=== PATIENT | female | born 1955 | race Caucasian/White ===

== ENCOUNTER → 2016-11-11 | Outpatient (CLI) | payer OTHER ==
[2016-11-11 12:33] LABS: Anion Gap 11 mmol/L; Blood Urea Nitrogen 15 mg/dL (7-17); Calcium 9.4 mg/dL (8.4-10.2); Carbon Dioxide 27 mmol/L (22-30); Chloride 103 mmol/L (98-107); Glucose 112 mg/dL (74-99); Non-African American GFR(MDRD) >60 (>60 ml/min/1.73 sqM); Potassium 4.1 mmol/L (3.5-5.1); Sodium 141 mmol/L (137-145)
[2016-11-11 12:35] LABS: Hemoglobin A1C 6.5 % (4.2-6.1)
== END | disposition home or self-care (01) ==
LOC: LABWHC1 11:49
PROVIDERS: ATTEND Internal Medicine
DX: E11.65 Type 2 diabetes mellitus with hyperglycemia (principal)
CPT/HCPCS: 36415; 80048; 83036

== ENCOUNTER → 2017-03-09 | Outpatient (CLI) | payer OTHER ==
[2017-03-09 12:09] LABS: Anion Gap 11 mmol/L; Blood Urea Nitrogen 10 mg/dL (7-17); Calcium 9.4 mg/dL (8.4-10.2); Carbon Dioxide 27 mmol/L (22-30); Chloride 102 mmol/L (98-107); Glucose 136 mg/dL (74-99); Non-African American GFR(MDRD) >60 (>60 ml/min/1.73 sqM); Potassium 4.4 mmol/L (3.5-5.1); Sodium 140 mmol/L (137-145)
[2017-03-09 16:27] LABS: Urine Creatinine 133.4 mg/dL
== END | disposition home or self-care (01) ==
LOC: LABWHC1 11:41
PROVIDERS: ATTEND Internal Medicine
DX: E11.65 Type 2 diabetes mellitus with hyperglycemia (principal)
CPT/HCPCS: 36415; 80048; 82043; 82570; 83036

== ENCOUNTER → 2017-04-22 | Outpatient (CLI) | payer OTHER ==
[2017-04-22 12:30] LABS: ALT 32 U/L (9-52); AST 16 U/L (14-36); Alkaline Phosphatase 68 U/L (38-126); Anion Gap 10 mmol/L; Blood Urea Nitrogen 12 mg/dL (7-17); Calcium 9.1 mg/dL (8.4-10.2); Carbon Dioxide 27 mmol/L (22-30); Chloride 104 mmol/L (98-107); Cholesterol 115 mg/dL (<200); Glucose 126 mg/dL (74-99); HDL Cholesterol 43 mg/dL (40-60); Non-African American GFR(MDRD) >60 (>60 ml/min/1.73 sqM); Potassium 4.3 mmol/L (3.5-5.1); Sodium 141 mmol/L (137-145); Total Bilirubin 0.5 mg/dL (0.2-1.3); Total Protein 6.6 g/dL (6.3-8.2)
[2017-04-22 13:21] LABS: Basophils % (A) 0 %; CHCM 34.3; Eosinophils # (A) 0.3 k/uL (0-0.7); Eosinophils % (A) 3 %; HCT 36.7 % (34.0-46.0); HDW 3.06; HGB 12.8 gm/dL (11.4-16.0); Luc # (Auto) 0.18; Luc % (Auto) 2; Lymphocytes # (A) 2.7 k/uL (1.0-4.8); Lymphocytes % (A) 30 %; MCH 28.5 pg (25.0-35.0); MCHC 34.8 g/dL (31.0-37.0); MCV 81.9 fL (80.0-100.0); Mean Platelet Volume 7.4; Monocytes # (A) 0.4 k/uL (0-1.0); Monocytes % (A) 4 %; Neutrophils # (A) 5.5 k/uL (1.3-7.7); Neutrophils % (A) 61 %; RBC 4.48 m/uL (3.80-5.40); RDW 13.5 % (11.5-15.5); WBC (Perox) 9.25
== END | disposition home or self-care (01) ==
LOC: LABWHC1 11:11
PROVIDERS: ATTEND Internal Medicine
DX: Z00.00 Encounter for general adult medical examination without abnormal findings (principal); E78.2 Mixed hyperlipidemia; I10 Essential (primary) hypertension; E11.21 Type 2 diabetes mellitus with diabetic nephropathy
CPT/HCPCS: 36415; 80053; 80061; 83036; 85025

== ENCOUNTER → 2017-08-19 | Outpatient (CLI) | payer OTHER ==
[2017-08-19 14:36] LABS: Anion Gap 12 mmol/L; Blood Urea Nitrogen 15 mg/dL (7-17); Calcium 9.8 mg/dL (8.4-10.2); Carbon Dioxide 28 mmol/L (22-30); Chloride 99 mmol/L (98-107); Glucose 162 mg/dL (74-99); Potassium 4.3 mmol/L (3.5-5.1); Sodium 139 mmol/L (137-145)
[2017-08-20 01:47] LABS: Hemoglobin A1C 7.6 % (4.0-6.0)
== END | disposition home or self-care (01) ==
LOC: LABWHC1 12:27
PROVIDERS: ATTEND Internal Medicine
DX: E11.65 Type 2 diabetes mellitus with hyperglycemia (principal)
CPT/HCPCS: 36415; 80048; 82043; 82570; 83036

== ENCOUNTER → 2018-04-21 | Outpatient (CLI) | payer OTHER ==
--- NOTE | 2018-04-23 13:01 | MM ---
Reason for exam: screening (asymptomatic). Last mammogram was performed 1 year and 5 months ago. History: Patient is postmenopausal. Benign MG stereo VAD BX LT of the left breast, September 24, 2015. Took estrogen for 6 years 7 months beginning at age 39. Physical Findings: A clinical breast exam by your physician is recommended on an annual basis and results should be correlated with mammographic findings. MG 3D Screening Mammo W/Cad Bilateral CC and MLO view(s) were taken. Prior study comparison: November 20, 2016, bilateral MG 3d diag mammo w/cad BK. April 04, 2016, left breast MG 3d diag mammo w/cad LT. There are scattered fibroglandular densities. Previous mammotome biopsy in the left breast. No significant changes when compared with prior studies. ASSESSMENT: Benign, BI-RAD 2 RECOMMENDATION: Routine screening mammogram of both breasts in 1 year.
== END | disposition home or self-care (01) ==
LOC: RADMAMWWP 13:53
PROVIDERS: ATTEND Internal Medicine
DX: Z12.31 Encounter for screening mammogram for malignant neoplasm of breast (principal)
CPT/HCPCS: 77063; 77067

== ENCOUNTER 2018-09-23 11:35 | Day surgery (SDC) | payer OTHER ==
[2018-09-14 12:54] VITALS: BMI 34.9
[2018-09-23 12:07] VITALS: RESP 16; TEMP 98.9
[2018-09-23] MEDS ORDERED: LACTATED RINGERS 1,000 ML IV ONE (12:18)
[2018-09-23] MEDS ORDERED: LIDOCAINE 1% 20 ML VIAL (10MG/ML) FOR IV START INTRADERMA ONE (12:18)
[2018-09-23 12:24] LABS: Glucose,Whole Blood 199 mg/dL (75-99)
[2018-09-23] MEDS ORDERED: PROPOFOL 10 MG/ML 20 ML VIAL IV ONE (14:26)
[2018-09-23] MEDS ORDERED: LIDOCAINE 1% INJ 10MG/ML (20 ML MDV) ONE (14:26)
--- NOTE | 2018-09-23 14:42 | P.OP ---
Date of Procedure: 09/23/18 Preoperative Diagnosis: Dysphagia and GERD Postoperative Diagnosis: Gastritis, esophagitis, small hiatal hernia Procedure(s) Performed: EGD with biopsy Anesthesia: MAC Surgeon: Khai Robbins Condition: stable Disposition: same day Description of Procedure: Patient is brought to the Endo suite was a left lateral decubitus position underwent sedation per department of anesthesia timeout performed correct patient correct procedure correct site was verified and the scope was passed first on the esophagus with ease through the stomach and the first and second portion of the duodenum biopsy was taken to rule out duodenitis scope was withdrawn to the stomach where mild gastritis is noted and antral biopsy was taken to rule out H. pylori. The scope was retroflexed all perez and body of stomach were visualized no other abnormalities were noted there was a very small hiatal hernia noted. The scope was then withdrawn to the GE junction where there was mild inflammation noted at the GE junction biopsy was taken and the scope was withdrawn through the esophagus and no other abnormalities were noted patient artery procedure well no apparent complications
[2018-09-23 15:12] VITALS: BP 136/84; PULSE 81
== END 2018-09-23 15:20 | disposition home or self-care (01) ==
LOC: ORWHC2ENDO 11:35
PROVIDERS: ATTEND Student in an Organized Health Care Education/Training Program
DX: K29.50 Unspecified chronic gastritis without bleeding (principal); K44.9 Diaphragmatic hernia without obstruction or gangrene; K21.0 Gastro-esophageal reflux disease with esophagitis; G89.29 Other chronic pain; E11.65 Type 2 diabetes mellitus with hyperglycemia; I10 Essential (primary) hypertension; E78.5 Hyperlipidemia, unspecified; M10.9 Gout, unspecified; M19.90 Unspecified osteoarthritis, unspecified site; G43.909 Migraine, unspecified, not intractable, without status migrainosus; Z79.84 Long term (current) use of oral hypoglycemic drugs; Z79.82 Long term (current) use of aspirin; Z79.899 Other long term (current) drug therapy; Z88.1 Allergy status to other antibiotic agents; Z88.2 Allergy status to sulfonamides; Z91.048 Other nonmedicinal substance allergy status; Z90.710 Acquired absence of both cervix and uterus
CPT/HCPCS: 88305; 43239; J2001; J2704

== ENCOUNTER → 2019-05-03 | Outpatient (CLI) | payer OTHER ==
--- NOTE | 2019-05-04 14:35 | MM ---
Reason for exam: screening (asymptomatic). Last mammogram was performed 1 year ago. History: Patient is postmenopausal. Benign MG stereo VAD BX LT of the left breast, September 24, 2015. Took estrogen for 6 years 7 months beginning at age 39. Physical Findings: A clinical breast exam by your physician is recommended on an annual basis and results should be correlated with mammographic findings. MG 3D Screening Mammo W/Cad Bilateral CC and MLO view(s) were taken. Prior study comparison: April 21, 2018, bilateral MG 3d screening mammo w/cad. November 20, 2016, bilateral MG 3d diag mammo w/cad BK. There are scattered fibroglandular densities. There is chronic nodularity bilaterally. No significant changes when compared with prior studies. ASSESSMENT: Benign, BI-RAD 2 RECOMMENDATION: Routine screening mammogram of both breasts in 1 year.
== END | disposition home or self-care (01) ==
LOC: RADMAMWWP 12:09
PROVIDERS: ATTEND Internal Medicine
DX: Z12.31 Encounter for screening mammogram for malignant neoplasm of breast (principal)
CPT/HCPCS: 77063; 77067

== ENCOUNTER → 2020-06-01 | Outpatient (CLI) | payer MEDICARE ==
--- NOTE | 2020-06-04 17:29 | BD ---
EXAMINATION TYPE: Axial Bone Density DATE OF EXAM: 06/01/2020 COMPARISON: NONE CLINICAL HISTORY: Postmenopausal screening Height: 5 FT 5 IN Weight: 218 FRAX RISK QUESTIONS: Alcohol (3 or more units per day): NO Family History (Parent hip fracture): NO Glucocorticoids (More than 3mos): NO (Ex: prednisone, prednisolone, methylprednisolone, dexamethasone, and hydrocortisone). History of Fracture in Adulthood: NO Secondary Osteoporosis: 1. Type 1 Diabetes: NO 2. Hyperthyroidism: NO 3. Menopause before 45: YES 4. Malnutrition: NO 5. Chronic liver disease: NO Rheumatoid Arthritis: NO Current Tobacco Use: NO RISK FACTORS HISTORY OF: Family History of Osteoporosis: YES Active: YES Postmenopausal woman: PART HYST AGE 31 BOWEN SYMPTOMS AGE 43 Take estrogen and/or progesterone medications: TOOK HRT FROM AGE [age] MEDICATIONS: Additional Medications: METFORMIN, AMLODIPINE, NORVASC, DULOXETINE, GLIPIZIDE, ATORVASTATIN, METOPROL OL, ASPIRIN, Additional History: EXAM MEASUREMENTS: Bone mineral densitometry was performed using the Br[employer] System. Bone mineral density as measured about the Lumbar spine is: ----- L1-L4(G/cm2): 1.246 T Score Values are as follows: ----- L2: 0.9 ----- L3: 1.1 ----- L4: -0.7 ----- L1-L4: 0.5 Bone mineral density has: DECREASED -8.4 % since study of: 2009 Bone mineral density about the R hip (g/cm2): 0.995 Bone mineral density about the L hip (g/cm2): 1.014 T Score values are as follows: -----R Neck: -0.3 -----L Neck: -0.2 -----R Total: 0.1 -----L Total: 0.2 Bone mineral density has: DECREASED -14.1 % since study of: 2009 IMPRESSION: Normal (Values between +1 and -1 indicate normal bone mass). Consider repeating this study in 5 year s or sooner if there is some new clinical indication. NOTE: T-SCORE=SD OF THE YOUNG ADULT MEAN.
--- NOTE | 2020-06-05 11:41 | MM ---
Reason for exam: screening (asymptomatic). Last mammogram was performed 1 year and 1 month ago. History: Patient is postmenopausal. Benign MG stereo VAD BX LT of the left breast, September 24, 2015. Took estrogen for 6 years 7 months beginning at age 39. Physical Findings: A clinical breast exam by your physician is recommended on an annual basis and results should be correlated with mammographic findings. MG 3D Screening Mammo W/Cad Bilateral CC and MLO view(s) were taken. XCCL view(s) were taken of the left breast. Prior study comparison: May 03, 2019, bilateral MG 3d screening mammo w/cad. April 21, 2018, bilateral MG 3d screening mammo w/cad. The breast tissue is heterogeneously dense. This may lower the sensitivity of mammography. Finding: There is a 6 mm circumscribed oval mass located 3.5 cm from the nipple in the upper inner quadrant, anterior position of the right breast. Increase in size since May 03, 2019 and April 21, 2018. ASSESSMENT: Incomplete: need additional imaging evaluation, BI-RAD 0 RECOMMENDATION: Special view mammogram of the right breast. If lesion persists on supplemental views, image directed ultrasound is recommended. [facility] will attempt to contact patient to return for supplemental views and ultrasound if indicated.
== END | disposition home or self-care (01) ==
LOC: RADMAMWWP 13:59
PROVIDERS: ATTEND Family Medicine
DX: Z12.31 Encounter for screening mammogram for malignant neoplasm of breast (principal); N95.1 Menopausal and female climacteric states
CPT/HCPCS: 77063; 77067; 77080

== ENCOUNTER → 2020-06-11 | Outpatient (CLI) | payer MEDICARE ==
--- NOTE | 2020-06-12 11:57 | MM ---
Reason for exam: additional evaluation requested from abnormal screening. Last mammogram was performed less than 1 month ago. History: Patient is postmenopausal. Benign MG stereo VAD BX LT of the left breast, September 24, 2015. Took estrogen for 6 years 7 months beginning at age 39. Physical Findings: Nurse did not find any significant physical abnormalities on exam. MG 3D Work Up W/Cad RT Spot compression CC, spot compression MLO, and LM view(s) were taken of the right breast. Prior study comparison: June 01, 2020, bilateral MG 3d screening mammo w/cad. May 03, 2019, bilateral MG 3d screening mammo w/cad. There are scattered fibroglandular densities. Central asymmetric density disperses on spot CC. Some questionable residual density on spot MLO. 6 month follow up recommended. These results were verbally communicated with the patient and result sheet given to the patient on 06/11/20. ASSESSMENT: Probably benign, BI-RAD 3 RECOMMENDATION: Follow-up diagnostic mammogram of the right breast in 6 months.
== END | disposition home or self-care (01) ==
LOC: RADMAMWWP 09:42
PROVIDERS: ATTEND Family Medicine
DX: R92.8 Other abnormal and inconclusive findings on diagnostic imaging of breast (principal)
CPT/HCPCS: 77065; G0279; 77061

== ENCOUNTER → 2021-04-10 | Outpatient (CLI) | payer MEDICARE ==
--- NOTE | 2021-04-11 10:01 | MM ---
Reason for exam: follow-up at short interval from prior study. Last mammogram was performed 10 months ago. History: Patient is postmenopausal. Benign MG stereo VAD BX LT of the left breast, September 24, 2015. Took estrogen for 6 years 7 months beginning at age 39. Physical Findings: Nurse did not find any significant physical abnormalities on exam. MG 3D Diag Mammo W/Cad RT CC and MLO view(s) were taken of the right breast. Prior study comparison: June 11, 2020, right breast MG 3d work up w/cad RT. June 01, 2020, bilateral MG 3d screening mammo w/cad. The breast tissue is heterogeneously dense. This may lower the sensitivity of mammography. Retroareolar nodule persists. Ultrasound recommended. These results were verbally communicated with the patient and result sheet given to the patient on 04/10/21. ASSESSMENT: Incomplete: need additional imaging evaluation, BI-RAD 0 RECOMMENDATION: Ultrasound of the right breast.
--- NOTE | 2021-04-11 10:02 | USB ---
Reason for exam: additional evaluation requested from abnormal screening. History: Patient is postmenopausal. Benign MG stereo VAD BX LT of the left breast, September 24, 2015. Took estrogen for 6 years 7 months beginning at age 39. US Breast Limited RT Right limited breast ultrasound including focal area of concern, retroareolar and axilla demonstrates a 0.5 x 0.5 x 0.4cm cystic lesion at 1 o'clock. These results were verbally communicated with the patient and result sheet given to the patient on 04/10/21. ASSESSMENT: Benign, BI-RAD 2 RECOMMENDATION: Return to routine screening mammogram schedule for both breasts. Back on schedule.
== END | disposition home or self-care (01) ==
LOC: RADMAMWWP 14:32
PROVIDERS: ATTEND Internal Medicine
DX: N60.01 Solitary cyst of right breast (principal); Z78.0 Asymptomatic menopausal state; Z79.818 Long term (current) use of other agents affecting estrogen receptors and estrogen levels
CPT/HCPCS: 77065; 76642; G0279; 77061

== ENCOUNTER → 2021-06-04 | Outpatient (CLI) | payer MEDICARE | END | disposition home or self-care (01) | LOC: LABWHC1 13:30 | PROVIDERS: ATTEND Internal Medicine | DX: Z20.822 Contact with and (suspected) exposure to COVID-19 (principal); R53.83 Other fatigue | CPT/HCPCS: 87635; C9803 ==

== ENCOUNTER → 2021-06-17 | Outpatient (CLI) | payer MEDICARE ==
--- NOTE | 2021-06-17 18:38 | XR ---
Result: History: Pain status post fall. Comparison: None available. Technique: 4 views of the left knee. Findings: No acute fracture or dislocation is seen. The visualized osseous structures are in anatomic alignmen t. There is mild tricompartmental osteoarthritis. There is no significant knee joint effusion. Impression: No acute osseous abnormality.
== END | disposition home or self-care (01) ==
LOC: RADXRMAIN 17:34
PROVIDERS: ATTEND Internal Medicine
DX: M25.562 Pain in left knee (principal)

== ENCOUNTER → 2021-07-02 | Outpatient (CLI) | payer MEDICARE ==
--- NOTE | 2021-07-02 14:36 | CT ---
EXAMINATION TYPE: CT brain wo con DATE OF EXAM: 07/02/2021 COMPARISON: None HISTORY: weakness, confusion CT DLP: 1072.3 mGycm Automated exposure control for dose reduction was used. FINDINGS: Mild generalized degenerative change of the slightly greater frontal lobe component. There is no evid ence of acute hemorrhage or mass effect. Calvarium intact. There is faint nonspecific white matter ch anges. More localized area of abnormal signal in the right thalamus suggest remote lacunar infarct. Orbits are symmetric. Sinuses are clear. Craniocervical junction demonstrates low-lying cerebellar to nsils at the level of foramen magnum. Sella turcica has a normal appearance. IMPRESSION: 1. MILD DEGENERATIVE CHANGE WITH THE NONSPECIFIC WHITE MATTER CHANGES MOST TYPICAL REMOTE ISCHEMIA. C ORRELATE WITH MRI. 2. REMOTE RIGHT THALAMIC LACUNAR INFARCT
== END | disposition home or self-care (01) ==
LOC: RADCTMAIN 14:06
PROVIDERS: ATTEND Internal Medicine
DX: I63.81 Other cerebral infarction due to occlusion or stenosis of small artery (principal)
CPT/HCPCS: 70450

== ENCOUNTER → 2021-07-18 | Outpatient (CLI) | payer MEDICARE ==
--- NOTE | 2021-07-22 11:01 | US ---
EXAMINATION TYPE: US kidneys/renal and bladder DATE OF EXAM: 07/18/2021 COMPARISON: NONE CLINICAL HISTORY: N18.31 STAGE 3 CHR KIDNEY DISEASE. EXAM MEASUREMENTS: Right Kidney: 11.0 x 4.8 x 6.0 cm Left Kidney: 11.8 x 4.9 x 5.5 cm Right Kidney: WNL as seen Left Kidney: Anechoic focus located medially 6.3 x 5.5 x 5.0 cm. Bladder: Anechoic; not fully distended Bilateral Jets seen: Rt jet seen. There is no evidence for hydronephrosis at this point in time. No nephrolithiasis is seen. No solid masses are identified. The urinary bladder is anechoic. IMPRESSION: Large left renal cyst.
== END | disposition home or self-care (01) ==
LOC: RADUSWWP 14:55
PROVIDERS: ATTEND Internal Medicine
DX: N18.30 Chronic kidney disease, stage 3 unspecified (principal); N28.1 Cyst of kidney, acquired
CPT/HCPCS: 76770

== ENCOUNTER → 2021-08-30 | Outpatient (CLI) | payer MEDICARE ==
--- NOTE | 2021-08-30 08:17 | MR ---
EXAMINATION TYPE: MR brain wo/w con DATE OF EXAM: 08/30/2021 COMPARISON: CT brain July 02, 2021 HISTORY: Right Thalamic Stroke TECHNIQUE: Multiplanar, multisequence images of the brain and brainstem is performed without and with IV contras t, utilizing 9 mL intravenous Gadavist . FINDINGS: Diffusion weighted images demonstrate no evidence of a recent infarct or other diffusion ab normality. The ventricular system and cisternal spaces are normal in size and appearance. The brain volume is age appropriate. Occasional scattered focus of T2 hyperintensity seen throughout the white matter bilaterally. Approximately 20-30 small scattered lesions are seen. Lesions are nonspecific in appearance and distribution. Corresponding to CT there is 6 mm oval T2 hyperintense structure in the posterior right basal ganglia consistent with prominent Virchow-Adan space or old lacunar infarct. T his is inferior anterior to the thalamus. Midline structures demonstrate normal morphology. The craniocervical junction appears within normal limits. Post contrast images are degraded by motion artifact. No obvious enhancing mass. The dural v enous sinuses appear patent. The visualized sinuses are clear and the globes are intact. IMPRESSION: Mild diffuse age-related cerebral atrophy and mild to borderline moderate chronic small v essel ischemic change. No MRI evidence for a recent infarct.
== END | disposition home or self-care (01) ==
LOC: RADMRIMAIN 06:58
PROVIDERS: ATTEND Internal Medicine
DX: I67.82 Cerebral ischemia (principal); G31.89 Other specified degenerative diseases of nervous system
CPT/HCPCS: 70553; A9585

== ENCOUNTER → 2021-11-12 | Outpatient (CLI) | payer MEDICARE ==
--- NOTE | 2021-11-12 11:01 | US ---
EXAMINATION TYPE: US carotid duplex BILAT DATE OF EXAM: 11/12/2021 COMPARISON: NONE CLINICAL HISTORY: I63.9 cerebral infarction. History of HTN, DM, and prior TIA EXAM MEASUREMENTS: RIGHT: Peak Systolic Velocity (PSV) cm/sec ----- Right CCA: 105 ----- Right ICA: 88.1 ----- Right ECA: 77.1 ICA/CCA ratio: 0.84 RIGHT: End Diastole cm/sec ----- Right CCA: 18.1 ----- Right ICA: 21.5 ----- Right ECA: 9.4 LEFT: Peak Systolic Velocity (PSV) cm/sec ----- Left CCA: 103 ----- Left ICA: 103 ----- Left ECA: 71.4 ICA/CCA ratio: 1 LEFT: End Diastole cm/sec ----- Left CCA: 21.7 ----- Left ICA: 24.9 ----- Left ECA: 8.46 VERTEBRALS (direction of flow): Right Vertebral: Antegrade Left Vertebral: Antegrade Rhythm: Normal Torturous Left ICA Mild atherosclerotic changes. Intimal thickening is present. IMPRESSION: 1. Mild intimal thickening without significant flow-limiting stenosis. Criteria for Assigning % of Stenosis / Diameter reduction (Estimation based on the indirect measurements of the internal carotid artery velocities (ICA PSV). 1. Normal (no stenosis)=ICA PSV < 125 cm/s: ratio < 2.0: ICA EDV<40 cm/s. 2. Less than 50% stenosis=ICA PSV < 125 cm/s: ratio < 2.0: ICA EDV<40 cm/s. 3. 50 to 69% stenosis=ICA PSV of 125 to 230 cm/s: ration 2.0 ? 4.0: ICA EDV 40-100 cm/s. 4. Greater than 70% stenosis to near occlusion= ICA PSV > 230 cm/s: ratio > 4.0: ICA EDV > 100 cm/s. 5. Near occlusion= ICA PSV velocities may be low or undetectable: variable ratio and ICA EDV. 6. Total occlusion=unable to detect flow.
== END | disposition home or self-care (01) ==
LOC: RADUSWWP 10:14
PROVIDERS: ATTEND Internal Medicine
DX: I63.9 Cerebral infarction, unspecified (principal); I10 Essential (primary) hypertension; E11.9 Type 2 diabetes mellitus without complications
CPT/HCPCS: 93880

== ENCOUNTER → 2024-03-04 | Outpatient (CLI) | payer MEDICARE ==
--- NOTE | 2024-03-04 20:25 | XR ---
EXAMINATION TYPE: XR abdomen 1V DATE OF EXAM: 03/04/2024 Comparison: None Clinical History: 68-year-old female K59.00 Constipation Findings: Multiple pelvic phlebolith. Cholecystectomy clips. Scattered moderate stool with air extending distal ly to the rectum. No dilated small bowel loops. No definite suspicious calcifications are seen. Impression: Scattered moderate stool burden. Nonobstructive bowel gas pattern. Multiple pelvic phleboliths.
== END | disposition home or self-care (01) ==
LOC: RADXRMAIN 13:29
PROVIDERS: ATTEND Internal Medicine
DX: K59.00 Constipation, unspecified (principal); I87.8 Other specified disorders of veins
CPT/HCPCS: 74018

== ENCOUNTER 2024-04-05 19:30 | Inpatient (IN) | payer MEDICARE ==
[~2024-04-05 19:30] MED LIST: SODIUM CHLORIDE 0.9% 1,000 ML BAG ONE; T.ENECTEPLASE 5 MG/ML VIAL IVP ONE
[2024-04-06] MEDS ORDERED: ACETAMINOPHEN TAB 325 MG TAB ONE ×2 (12:32→21:20)
[2024-04-06] MEDS ORDERED: PANTOPRAZOLE 40 MG TABLET PO ONE (12:33)
[2024-04-06] MEDS ORDERED: MAGNESIUM SULFATE-D5W PMX 100 ML IVPB ONE ×3 (14:01→18:52)
[2024-04-06] MEDS ORDERED: INSULIN ASPART (NovoLOG) 100 UNIT/ML VIAL SQ ONE ×2 (19:52→19:53)
[2024-04-07] MEDS ORDERED: PANTOPRAZOLE 40 MG TABLET PO ONE (06:20)
[2024-04-07] MEDS ORDERED: POTASSIUM CHLORIDE ER 20 MEQ TAB.ER PO ONE (06:20)
[2024-04-07] MEDS ORDERED: LORATADINE 10 MG TAB ONE (08:33)
[2024-04-07] MEDS ORDERED: DULoxetine HCL 60 MG CAPSULE.DR PO ONE (08:33)
[2024-04-07] MEDS ORDERED: ATORVASTATIN 40 MG TAB ONE (08:33)
[2024-04-07] MEDS ORDERED: ASCORBIC ACID 500 MG TAB ONE (08:33)
[2024-04-07] MEDS ORDERED: ACETAMINOPHEN TAB 325 MG TAB ONE (08:39)
[2024-04-07] MEDS ORDERED: SODIUM CHLORIDE 0.9% 1,000 ML BAG ONE (12:30)
[2024-04-07] MEDS ORDERED: INSULIN ASPART (NovoLOG) 100 UNIT/ML VIAL SQ ONE ×3 (12:30→20:53)
[2024-04-07] MEDS ORDERED: ENOXAPARIN 40 MG/0.4 ML SYRINGE SQ ONE (13:18)
[2024-04-07] MEDS ORDERED: ASPIRIN 325 MG TAB ONE (13:18)
[2024-04-08] MEDS ORDERED: ASCORBIC ACID 500 MG TAB ONE ×2 (08:57→09:10)
[2024-04-08] MEDS ORDERED: CHOLECALCIFEROL 25 MCG (1000 IU) TABLET ONE (08:57)
[2024-04-08] MEDS ORDERED: CYANOCOBALAMIN 500 MCG TAB ONE (08:57)
[2024-04-08] MEDS ORDERED: LORATADINE 10 MG TAB ONE (08:57)
[2024-04-08] MEDS ORDERED: DULoxetine HCL 60 MG CAPSULE.DR PO ONE (08:58)
[2024-04-08] MEDS ORDERED: ATORVASTATIN 40 MG TAB ONE (08:58)
[2024-04-08] MEDS ORDERED: PSYLLIUM HUSK 100% 6 GM PACKET PO ONE (08:58)
[2024-04-08] MEDS ORDERED: ASPIRIN 325 MG TAB ONE (08:58)
[2024-04-08] MEDS ORDERED: ENOXAPARIN 40 MG/0.4 ML SYRINGE SQ ONE (08:58)
[2024-04-08] MEDS ORDERED: INSULIN ASPART (NovoLOG) 100 UNIT/ML VIAL SQ ONE ×3 (13:05→21:58)
[2024-04-08] MEDS ORDERED: amLODIPine 10 MG TAB ONE (16:14)
[2024-04-08] MEDS ORDERED: CLOPIDOGREL 75 MG TAB ONE (16:14)
[2024-04-08] MEDS ORDERED: METOPROLOL SUCCINATE (ER) 100 MG TAB.ER.24H PO ONE (16:14)
[2024-04-08] MEDS ORDERED: LOSARTAN 25 MG TAB ONE ×2 (16:14→21:49)
[2024-04-09] MEDS ORDERED: INSULIN ASPART (NovoLOG) 100 UNIT/ML VIAL SQ ONE ×2 (07:30→20:33)
[2024-04-09] MEDS ORDERED: PANTOPRAZOLE 40 MG TABLET PO ONE (07:32)
[2024-04-09] MEDS ORDERED: LOSARTAN 25 MG TAB ONE (08:57)
[2024-04-09] MEDS ORDERED: ASCORBIC ACID 500 MG TAB ONE ×2 (08:57→09:04)
[2024-04-09] MEDS ORDERED: ASPIRIN 81 MG ONE (08:57)
[2024-04-09] MEDS ORDERED: CYANOCOBALAMIN 500 MCG TAB ONE (08:57)
[2024-04-09] MEDS ORDERED: CLOPIDOGREL 75 MG TAB ONE (08:58)
[2024-04-09] MEDS ORDERED: LORATADINE 10 MG TAB ONE (08:58)
[2024-04-09] MEDS ORDERED: PSYLLIUM HUSK 100% 6 GM PACKET PO ONE (08:58)
[2024-04-09] MEDS ORDERED: CHOLECALCIFEROL 25 MCG (1000 IU) TABLET ONE (08:58)
[2024-04-09] MEDS ORDERED: METOPROLOL SUCCINATE (ER) 100 MG TAB.ER.24H PO ONE (08:58)
[2024-04-09] MEDS ORDERED: ENOXAPARIN 40 MG/0.4 ML SYRINGE SQ ONE (08:59)
[2024-04-09] MEDS ORDERED: DULoxetine HCL 60 MG CAPSULE.DR PO ONE (08:59)
[2024-04-09] MEDS ORDERED: amLODIPine 10 MG TAB ONE (08:59)
[2024-04-09] MEDS ORDERED: ATORVASTATIN 40 MG TAB ONE (09:03)
[2024-04-09] MEDS ORDERED: LOSARTAN 50 MG TAB ONE (20:32)
[2024-04-10] MEDS ORDERED: DEXTROSE 50% SYRINGE 50 ML IVP PRN ×2
[2024-04-10] MEDS: Potassium Replacement Protocol 1 EACH MISC MISCELLANE ONE (05:17)
[2024-04-10] MEDS: Magnesium Replacement Protocol 1 EACH MISC MISCELLANE ONE (05:17)
[2024-04-10 05:53] LABS: Glucose,Whole Blood 183 mg/dL (70-110)
[2024-04-10] MEDS: INSULIN ASPART (NovoLOG) 100 UNIT/ML VIAL SQ SCH (06:29)
[2024-04-10] MEDS: PANTOPRAZOLE 40 MG TABLET PO SCH (06:29)
[2024-04-10] MEDS: amLODIPine 10 MG TAB PO SCH (09:41)
[2024-04-10] MEDS: ENOXAPARIN 40 MG/0.4 ML SYRINGE SQ SCH (09:41)
[2024-04-10] MEDS: LORATADINE 10 MG TAB PO SCH (09:42)
[2024-04-10] MEDS: CHOLECALCIFEROL 25 MCG (1000 IU) TABLET PO SCH (09:42)
[2024-04-10] MEDS: ASPIRIN 81 MG PO SCH (09:42)
[2024-04-10] MEDS: DULoxetine HCL 60 MG CAPSULE.DR PO SCH (09:42)
[2024-04-10] MEDS: ATORVASTATIN 40 MG TAB PO SCH (09:42)
[2024-04-10] MEDS: PSYLLIUM HUSK 100% 6 GM PACKET PO SCH (09:42)
[2024-04-10] MEDS: CLOPIDOGREL 75 MG TAB PO SCH (09:42)
[2024-04-10] MEDS: LOSARTAN 50 MG TAB PO SCH (09:42)
[2024-04-10] MEDS: METOPROLOL SUCCINATE (ER) 100 MG TAB.ER.24H PO SCH (09:53)
[2024-04-10 11:42] LABS: Glucose,Whole Blood 221 mg/dL (70-110)
--- NOTE | 2024-04-10 11:43 | P.PN ---
Subjective Progress Note Date: 04/10/24 Hospital Course: 68-year-old female with history of hypertension, dyslipidemia, diabetes presen ting with CVA status post TNK. Echo did not show any shunting. MRI shows acute/subacute ischemia involving the right bonilla radiata. CTA did not show any significant stenosis at the carotid bifurcation or intracranial high-grade stenosis. Patient pending either inpatient rehab versus subacute rehab. Subjective: Patient seen and examined at bedside. No acute events overnight. Denies any ne w complaints Pertinent positives and negatives as discussed above, a complete review of systems was performed and all other systems are negative. Vitals Signs Reviewed. General: Nontoxic, no distress, appears at stated age Derm: Warm, dry Head: Atraumatic, normocephalic, symmetric Eyes: EOMI, no lid lag, anicteric sclera Mouth: No lip lesion, mucus membranes moist Cardiovascular: S1S2 reg, no murmur Lungs: CTA bilateral, no rhonchi, no rales, no accessory muscle use Abdominal: Soft, nontender to palpation, no guarding, no appreciable organomegaly Ext: No gross muscle atrophy, no edema, no contractures Neuro: CN II-XI grossly intact, left upper and lower extremity 4/5 strength Psych: Alert, oriented, appropriate affect Data Reviewed Today: Pertinent Labs: Blood sugar 183 Imaging: No new imaging Assessment and Plan: Active: Acute CVA status post TNK -Neurology following -Continue aspirin 81 mg, atorvastatin 40 mg, Plavix 75 mg, continue dual antiplatelet for 90 days, then only aspirin -PT/OT/speech therapy Type 2 diabetes -Continue sliding scale insulin, monitor for hypoglycemia -Holding home antidiabetics Hypertension -Amlodipine 10 mg, losartan was increased to 50 twice daily during this admission -Continue metoprolol 100 daily Constipation -On Metamucil, MiraLAX daily scheduled order Chronic: Depression GERD DVT ppx: Lovenox Code status: Full code Anticipated discharge place: Subacute rehab versus inpatient rehab Anticipated discharge time: Likely tomorrow Objective - Vital Signs Vital signs: Vital Signs Temp 98.0 F 04/10/24 09:16 Pulse 71 04/10/24 09:16 Resp 18 04/10/24 09:16 BP 148/79 04/10/24 09:16 Pulse Ox 95 04/10/24 09:16 FiO2 Intake & Output 04/09/24 04/10/2404/10/24 18:59 06:59 18:59 Intake Total 370 Output Total 200 Balance -200 370 Weight 95.481 kg Intake: IV 10 Invasive Line 1 10 Oral 360 Output: Urine 200 Other: Voiding Method Toilet # Voids 2 - Labs Labs: Abnormal Lab Results - Last 24 Hours (Table) 04/10/24 04/10/24 Range/Units 05:51 11:40 POC Glucose (mg/dL) 183 H 221 H (70-110) mg/dL
[2024-04-10] MEDS: CYANOCOBALAMIN 500 MCG TAB PO SCH (12:15)
[2024-04-10] MEDS: ASCORBIC ACID 500 MG TAB PO SCH (12:15)
[2024-04-10] MEDS: polyethylene glycoL 3350 17 GM POWD.PACK PO SCH (12:16)
--- NOTE | 2024-04-10 12:46 | P.PN ---
Subjective Progress Note Date: 04/10/24 The patient is seen today April 10, 2024 and follow-up on the regular medical floor. She is currently sitting up at the bedside. Awake and alert in no acute distress. Feeling stronger every day. Less left upper and lower extremity weakness. Working with PT/OT. She is maintaining good O2 saturations in the 90s on room air. She has been afebrile. Hemodynamically stable. Glucose 221. She is continued on aspirin, statins. Lovenox for DVT prophylaxis. Objective - Vital Signs Vital signs: Vital Signs Temp 98.0 F 04/10/24 09:16 Pulse 64 04/10/24 12:12 Resp 18 04/10/24 12:12 BP 137/75 04/10/24 12:12 Pulse Ox 96 04/10/24 12:12 FiO2 Intake & Output 04/09/24 04/10/24 04/10/24 18:59 06:59 18:59 Intake Total 370 Output Total 200 Balance -200 370 Weight 95.481 kg Intake: IV 10 Invasive Line 1 10 Oral 360 Output: Urine 200 Other: Voiding Method Toilet # Voids 2 - Exam GENERAL EXAM: Alert, pleasant 68-year-old female, on room air, comfortable in no apparent distress. HEAD: Normocephalic. EYES: Normal reaction of pupils, equal size. NOSE: Clear with pink turbinates. THROAT: No erythema or exudates. NECK: No masses, no JVD. CHEST: No chest wall deformity. LUNGS: Equal air entry with no crackles, wheeze, rhonchi or dullness. CVS: S1 and S2 normal with no audible murmur, regular rhythm. ABDOMEN: No hepatosplenomegaly, normal bowel sounds, no guarding or rigidity. SPINE: No scoliosis or deformity SKIN: No rashes CENTRAL NERVOUS SYSTEM: Left-sided weakness, tone is normal in all 4 e xtremities. EXTREMITIES: There is no peripheral edema. No clubbing, no cyanosis. Peripheral pulses are intact. - Labs Labs: Abnormal Lab Results - Last 24 Hours (Table) 04/10/24 04/10/24 Range/Units 05:51 11:40 POC Glucose (mg/dL) 183 H 221 H (70-110) mg/dL Assessment and Plan Assessment: Assessment: Acute CVA with left-sided weakness, status post TNK Hypertension Diabetes mellitus Plan: The patient was seen and evaluated Labs and medications reviewed Currently stable and on room air Plan is for acute/subacute rehabilitation at discharge I have personally seen and examined the patient, performed the documentation and the assessment and plan as written. Number of minutes spent on the visit: 10.
--- NOTE | 2024-04-10 13:14 | P.PN ---
Subjective Progress Note Date: 04/10/24 Patient is seen for follow-up. Patient is sitting in the recliner. Patient's daughter was also present. They believe that she is doing better. Her left side is still slightly weak. Patient states that she feels leaning to the left. Objective - Vital Signs Vital signs: Vital Signs Temp 98.0 F 04/10/24 09:16 Pulse 64 04/10/24 12:12 Resp 18 04/10/24 12:12 BP 137/75 04/10/24 12:12 Pulse Ox 96 04/10/24 12:12 FiO2 Intake & Output 04/09/24 04/10/24 04/10/24 18:59 06:59 18:59 Intake Total 370 Output Total 200 Balance -200 370 Weight 95.481 kg Intake: IV 10 Invasive Line 1 10 Oral 360 Output: Urine 200 Other: Voiding Method Toilet # Voids 2 - Exam Mental status, speech and language functions are normal. Cranial nerves are completely normal. At times she has left facial asymmetry but other times looks normal. Visual damon are full. On muscle strength testing, patient has left pronation, but no drift. Strength is essentially normal. Hip flexion is 5 - on the left. Sensations are equal. - Labs Labs: Abnormal Lab Results - Last 24 Hours (Table) 04/10/24 04/10/24 Range/Units 05:51 11:40 POC Glucose (mg/dL) 183 H 221 H (70-110) mg/dL Assessment and Plan Assessment: * Acute ischemic stroke right bonilla radiator and right peripheral frontal lobe. * Hypertension * Diabetes * Hyperlipidemia Plan: * Patient was taking Plavix and 5 mg daily. Aspirin 81 mg has been added. Patient will be maintained on DAPT for 90 days. * Await hemoglobin A1c * Await lipid panel * On Lovenox 40 mg subcu daily * Patient to undergo event monitoring hookup for 30 days prior to discharge. * PT OT * Avoid hypotension. May start gradually controlling blood pressure to normotensive level. * Patient neurologically stable to be transferred to inpatient rehab. * Dr. Darrel Ardon to resume neurology service in the morning.
[2024-04-10 16:49] LABS: Glucose,Whole Blood 262 mg/dL (70-110)
[2024-04-10 20:30] LABS: Glucose,Whole Blood 221 mg/dL (70-110)
[2024-04-10 23:57] VITALS: RESP 16
[2024-04-11] MEDS: ACETAMINOPHEN TAB 325 MG TAB PO PRN (01:23)
[2024-04-11 06:12] LABS: Glucose,Whole Blood 200 mg/dL (70-110)
[2024-04-11 08:45] VITALS: TEMP 98
[2024-04-11 11:31] LABS: Glucose,Whole Blood 227 mg/dL (70-110)
[2024-04-11] MEDS: CLOPIDOGREL 75 MG TAB ONE ×2 (12:31)
[2024-04-11] MEDS: PSYLLIUM HUSK 100% 6 GM PACKET PO ONE ×2 (12:31)
[2024-04-11] MEDS: PANTOPRAZOLE 40 MG TABLET PO ONE ×2 (12:31)
[2024-04-11] MEDS: ASPIRIN 81 MG ONE ×2 (12:31)
[2024-04-11] MEDS: ACETAMINOPHEN TAB 325 MG TAB ONE ×2 (12:31)
[2024-04-11 12:50] VITALS: BMI 34.2
--- NOTE | 2024-04-11 13:21 | P.PN ---
Subjective Progress Note Date: 04/11/24 Principal diagnosis: Respiratory failure. The patient is seen today April 10, 2024 and follow-up on the regular medical floor. She is currently sitting up at the bedside. Awake and alert in no acute distress. Feeling stronger every day. Less left upper and lower extremity w eakness. Working with PT/OT. She is maintaining good O2 saturations in the 90s on room air. She has been afebrile. Hemodynamically stable. Glucose 221. She is continued on aspirin, statins. Lovenox for DVT prophylaxis. Progress note dated April 11, 2024. The patient is seen today in room 377. The patient is doing relatively well. She is currently on room air. She is not receiving any IV fluids. The patient was admitted with a diagnosis of CVA, with left-sided weakness. The patient did receive TNK. She has a history of essential hypertension, and diabetes mellitus. No new labs today other than a glucose of 227. Objective - Vital Signs Vital signs: Vital Signs Temp 98.0 F 04/11/24 08:00 Pulse 67 04/11/24 08:00 Resp 16 04/11/24 08:00 BP 132/72 04/11/24 08:00 Pulse Ox 95 04/11/24 08:00 FiO2 Intake & Output 04/10/24 04/11/24 04/11/24 18:59 06:59 18:59 Intake Total 610 118 Output Total 925 Balance 610 -925 118 Weight 93.3 kg 93.3 kg Intake: IV 10 Invasive Line 1 10 Oral 600 118 Output: Urine 925 Other: Voiding Method Toilet External Catheter External Catheter # Voids 1 - Exam No acute distress, oriented 3. No respiratory distress. Currently on room air . HEENT examination is grossly unremarkable. Mucous membranes are moist. No oral lesions. Neck supple. Full range of motion. No adenopathy thyromegaly or neck vein distention. Cardiovascular examination reveals regular rhythm rate. S1-S2 normal. No S3 or S4. No discernible murmur noted. Lungs reveal clear breath sounds. Her sounds are equal bilaterally. No adventitious lung sounds including wheezes rhonchi or crackles. Abdomen soft bowel sounds are heard. No masses or tenderness. Extremities are intact. No cyanosis clubbing or edema. Skin is without rash or lesion. Neurologic examination reveals left-sided weakness. - Labs Labs: Abnormal Lab Results - Last 24 Hours (Table) 04/10/24 04/10/24 04/11/24 Range/Units 16:48 20:29 06:10 POC Glucose (mg/dL) 262 H 221 H 200 H (70-110) mg/dL 04/11/24 Range/Units 11:30 POC Glucose (mg/dL) 227 H (70-110) mg/dL Assessment and Plan Assessment: Acute CVA, with left-sided weakness, status post TNK. Benign essential hypertension. History of diabetes mellitus. Plan: Plan dated April 11, 2024. The patient appears to be doing relatively well. She does have left-sided weakness. The patient is apparently going to be discharged to rehab. Labs, x- rays, medications are reviewed. The patient's respiratory status is stable. We will continue to follow. Prognosis is guarded. Time with Patient: Less than 30
--- NOTE | 2024-04-11 13:35 | P.DS ---
Providers Date of admission: 04/05/24 19:30 Expected date of discharge: 04/11/24 Attending physician: Oma Correa MD Consults: 04/05/24 23:25 Consult Physician Routine Consulting Provider: Patience Sandoval Consult Reason/Comments: [email or web address] Do you want consulting provider notified?: Already Contacted 04/07/24 16:00 Consult Physician Routine Consulting Provider: Ino Torres Consult Reason/Comments: IPR eval Do you want consulting provider notified?: Already Contacted Primary care physician: Physician Nonstaff Hospital Course: Discharge Diagnosis: Acute CVA status post TNK Type 2 diabetes Hypertension Constipation Hospital Course: 68-year-old female with history of hypertension, dyslipidemia, diabetes presenting with CVA status post TNK. Echo did not show any shunting. MRI shows acute/subacute ischemia involving the right bonilla radiata. CTA did not show any significant stenosis at the carotid bifurcation or intracranial high-grade stenosis. Patient to be discharged with an event monitor for 30 days. Aspirin and Plavix for 90 days and then just aspirin alone. Continue statin. Neurology and ICU was consulted during this admission. Patient to follow-up with PCP and neurology outpatient. Patient seen and examined at bedside. Vital signs reviewed and stable. General: Nontoxic, no distress, appears at stated age Derm: Warm, dry Head: Atraumatic, normocephalic, symmetric Eyes: EOMI, no lid lag, anicteric sclera Mouth: No lip lesion, mucus membranes moist Cardiovascular: S1S2 reg, no murmur Lungs: CTA bilateral, no rhonchi, no rales, no accessory muscle use Abdominal: Soft, nontender to palpation, no guarding, no appreciable organomegaly Ext: No gross muscle atrophy, no edema, no contractures Neuro: CN II-XI grossly intact, no focal neuro deficits Psych: Alert, oriented, appropriate affect A total of 33 minutes of time were spent preparing this complex discharge summary. Patient was discharged on 04/11/2024 at 1304. Patient Condition at Discharge: Stable Plan - Discharge Summary New Discharge Prescriptions: New Aspirin 81 mg PO DAILY tab Losartan [Cozaar] 50 mg PO BID tab Atorvastatin [Lipitor] 40 mg PO DAILY tab Clopidogrel [Plavix] 75 mg PO DAILY #90 tab Ascorbic Acid [Vitamin C] 1,000 mg PO DAILY@1200 tab Psyllium Husk 100% [Metamucil Packet] 6 gm PO DAILY packet polyethylene glycoL 3350 [Miralax] 17 gm PO DAILY packet Cyanocobalamin [Vitamin B-12] 1,000 mcg PO DAILY@1200 tab Continue amLODIPine [Norvasc] 5 mg PO BID Metoprolol Succinate (ER) [Toprol XL] 100 mg PO DAILY glipiZIDE [Glucotrol] 5 mg PO AC-BID metFORMIN HCL [Glucophage] 1,500 mg PO PC-SUPPER metFORMIN HCL [Glucophage] 1,000 mg PO QAM Ergocalciferol (Vitamin D2) [Vitamin D2] 50,000 unit PO WE DULoxetine HCL [Cymbalta] 60 mg PO DAILY Omeprazole 40 mg PO DAILY #30 capsule. Discontinued Aspirin 325 mg PO DAILY Simvastatin [Zocor] 10 mg PO HS Discharge Medication List DULoxetine HCL [Cymbalta] 60 mg PO DAILY 09/14/18 [History] Ergocalciferol (Vitamin D2) [Vitamin D2] 50,000 unit PO WE 09/14/18 [History] Metoprolol Succinate (ER) [Toprol XL] 100 mg PO DAILY 09/14/18 [History] amLODIPine [Norvasc] 5 mg PO BID 09/14/18 [History] glipiZIDE [Glucotrol] 5 mg PO AC-BID 09/14/18 [History] metFORMIN HCL [Glucophage] 1,000 mg PO QAM 09/14/18 [History] metFORMIN HCL [Glucophage] 1,500 mg PO PC-SUPPER 09/14/18 [History] Omeprazole 40 mg PO DAILY #30 capsule. 09/23/18 [Rx] Ascorbic Acid [Vitamin C] 1,000 mg PO DAILY@1200 tab 04/11/24 [Rx] Aspirin 81 mg PO DAILY tab 04/11/24 [Rx] Atorvastatin [Lipitor] 40 mg PO DAILY tab 04/11/24 [Rx] Clopidogrel [Plavix] 75 mg PO DAILY #90 tab 04/11/24 [Rx] Cyanocobalamin [Vitamin B-12] 1,000 mcg PO DAILY@1200 tab 04/11/24 [Rx] Losartan [Cozaar] 50 mg PO BID tab 04/11/24 [Rx] Psyllium Husk 100% [Metamucil Packet] 6 gm PO DAILY packet 08/26/24 [Rx] polyethylene glycoL 3350 [Miralax] 17 gm PO DAILY packet 04/11/24 [Rx] Follow up Appointment(s)/Referral(s): Laxmi Thorne MD [REFERRING] - 1 Week Star Singh MD [REFERRING] - 1 Week Patient Instructions/Handouts: Ischemic Stroke (DC) Activity/Diet/Wound Care/Special Instructions: Please see your PCP, if you don't have a PCP, make an appointment with Dr. Singh. Please see neurology as well. Discharge Disposition: TRANSFER TO SNF/ECF
[2024-04-11 13:56] VITALS: BP 125/78; PULSE 65
--- NOTE | 2024-04-26 11:21 | MR ---
Site ID [id number] Eli Drew ID [id number] 12/04/1969 Age/Gender: 54Y, F Order # N/A Procedure CT brain wo con Date 04/06/2024 1:19:00 PM EXAMINATION TYPE: MR brain wo con DATE OF EXAM: 04/06/2024 5:09 PM COMPARISON: CT brain 04/06/2024, 04/05/2024, CT head and neck 04/05/2024. CLINICAL INDICATION: Female, 54 year old with history of acute CVA. TECHNIQUE: Multi planar, multi sequence imaging was performed through the brain. No gadolinium was gi janet. FINDINGS: Restricted diffusion identified within the right bonilla radiata. Additional single focus of restricte d diffusion identified within the subcortical white matter of the right frontal lobe. There is corres ponding T2/FLAIR hyperintensity. Prominent perivascular space identified within the right basal gangl ia. The ugalde-white junctions, ventricular system, and cisterns appear unremarkable. Patchy areas of high T2/FLAIR signal intensity are seen within the periventricular white matter and kenzie. Midline str uctures show no abnormality. The susceptibility weighted images do not reveal any evidence for micro- hemorrhage. Age-appropriate cerebral volume loss. The bone marrow signal is within normal limits. The paranasal sinuses unremarkable. Bilateral aphakia . IMPRESSION: 1. Acute/subacute ischemia involving the right bonilla radiata with additional single focus within the periphery of the right frontal lobe. No MRI evidence for acute hemorrhage. 2. Nonspecific white matter changes involving the periventricular white matter and kenzie. Etiologies i nclude chronic small vessel ischemic disease versus other such as demyelination.
--- NOTE | 2024-04-26 13:57 | CT ---
Patient: Eli Frazier Ordering Physician: Unknown, Unknown ID: [id number] Phone, Pager: Phone: N/A Pager: N/A : 12/04/1969 Age/Gender: 54Y, F Primary Location: N/A Procedure: CT brain wo con Study Date: 04/05/2024 5:49:00 PM EXAMINATION TYPE: CT brain wo con CT DLP: 1606 mGycm, Automated exposure control for dose reduction was used. DATE OF EXAM: 04/05/2024 6:15 PM COMPARISON: Same day angiogram.. CLINICAL INDICATION: Neurological deficit. TECHNIQUE: Brain: Axial CT images of the brain were obtained with coronal and sagittal reformats created and rev iewed. Contrast used: None. Oral contrast used: None. FINDINGS: Brain: Extra-axial spaces: No abnormal extra-axial fluid collections. Ventricular system: Within normal limits Cerebral parenchyma: Right basal ganglia prominent perivascular space versus remote injury. No acute intraparenchymal hemorrhage or mass effect. The ugalde-white junction is well differentiated. Cerebellum: Remote injury to the right cerebellum versus prominent sulcus. Mass effect: No evidence of midline shift. Intracranial vasculature: unremarkable Soft tissues: Normal. Calvarium/osseous structures: No depressed skull fracture. Paranasal sinuses and mastoid air cells: Mild scattered paranasal sinus disease. Visualized orbits: Orbital contents are intact. IMPRESSION: No acute intracranial process.
--- NOTE | 2024-04-26 13:57 | CT ---
Patient: Eli Frazier Ordering Physician: Unknown, Unknown ID: [id number] Phone, Pager: Phone: N/A Pager: N/A : 12/04/1969 Age/Gender: 54Y, F Primary Location: N/A Procedure: CODE STROKE: CTA head neck Study Date: 04/05/2024 5:49:36 PM EXAMINATION TYPE: CT angio head neck CT DLP: 1606 mGycm, Automated exposure control for dose reduction was used. DATE OF EXAM: 04/05/2024 6:08 PM COMPARISON: None. CLINICAL INDICATION: Code stroke, neurological deficit TECHNIQUE: Axially acquired helical CT angiogram of the head and neck was obtained with contrast. Axi al images are supplemented with 3D reconstructions and MIP images which were post-processed at an in dependent workstation. NASCET criteria used. Contrast used: 65 cc Isovue 370 Oral contrast used: None. FINDINGS: CTA HEAD: No evidence of acute intracranial hemorrhage, mass effect, or midline shift. The ventricles, sulci, a nd cisterns are unremarkable. The visualized portions of the internal carotid arteries, middle cerebral arteries, anterior cerebral arteries, and posterior cerebral arteries are patent. The basilar and vertebral arteries are patent. CTA NECK: Right Carotid System: The common carotid artery and external carotid artery are patent. The carotid bifurcation demonstrate s no evidence of hemodynamically significant stenosis. The remaining portions of the internal carotid artery demonstrate normal size without significant narrowing. Left Carotid System: The common carotid artery and external carotid artery are patent. The carotid bifurcation demonstrate s no evidence of hemodynamically significant stenosis. The remaining portions of the internal carotid artery demonstrate normal size without significant narrowing. Vertebral arteries are patent without evidence hemodynamically significant stenosis. There is a three-vessel aortic arch. The origins of the great vessels are patent. No evidence of hemo dynamically significant stenosis.: IMPRESSION: 1. No evidence of dissection of the cervical internal carotid arteries or vertebral arteries or any e vidence of significant stenosis at the carotid bifurcations. 2. No evidence of intracranial high-grade stenosis or intracranial aneurysm.
--- NOTE | 2024-04-27 08:37 | CT ---
Eli Frazier ID: [id number] : 12/04/1969 EXAMINATION TYPE: CT brain wo con DATE OF EXAM: 04/06/2024 COMPARISON: 04/05/2024 HISTORY: 54-year-old female vomiting and headache status post TPA yesterday TECHNIQUE: Examination was done in axial plane without intravenous contrast. Coronal and sagittal r econstructions performed. CT DLP: 1137.4 mGycm Automated exposure control for dose reduction was used. FINDINGS: There is no evidence of acute intracranial hemorrhage, acute ischemic changes, mass, mass-effect, or extra-axial fluid collection. There is no effacement of cerebral sulci or basal subarachnoid cister ns. There is no hydrocephalus. There is no midline shift. Liao-white matter distinction is preserv ed. Atherosclerotic calcifications in the carotid siphons. Redemonstrated prominent perivascular space or old lacunar infarct right basal ganglia. Some cortical/subcortical hypodensity anterolateral right f rontal lobe, axial image 29 better seen now. Seems to have been present in retrospect when correlatin g with previous coronal series. Slight leftward nasal septal deviation. Scattered trace mucosal thickening ethmoid air cells. Globes are intact. Mastoid air cells well pneumatized. IMPRESSION: 1. No large vascular territory evolving infarct identified. No hemorrhagic transformation, mass effec t, or midline shift. 2. Some cortical/subcortical hypodensity anterolateral right frontal lobe is slightly better seen on today's exam. Possible small area of evolving cortical infarct. An area of subacute or chronic ischem ia is also possible. No older priors are available for comparison. Correlate as to the patient's neur ologic deficits.
--- NOTE | 2024-05-02 14:00 | CA ---
Transthoracic Echo Report Name: Eli Frazier Age: 68 Gender: O : 1955 Exam Date: 04/06/2024 11:07 Exam Location: [facility] Ht (in): 65 Wt (lb): 200 Ordering Physician: Attending/Referring Phys: Mail Carrier And Clerk Mirian Zaragoza RDCS Procedure CPT: Indications: Cardiac Hx: Technical Quality: Fair Contrast 1: Total Dose (mL): Contrast 2: Total Dose (mL): MEASUREMENTS (Male / Female) Normal Values 2D ECHO LV Diastolic Diameter PLAX 4.3 cm 4.2 - 5.9 / 3.9 - 5.3 cm LV Systolic Diameter PLAX 2.9 cm IVS Diastolic Thickness 1.2 cm 0.6 - 1.0 / 0.6 - 0.9 cm LVPW Diastolic Thickness 1.1 cm 0.6 - 1.0 / 0.6 - 0.9 cm LV Relative Wall Thickness 0.5 RV Internal Dim ED PLAX 3.4 cm LA Systolic Diameter LX 4.0 cm 3.0 - 4.0 / 2.7 - 3.8 cm LA Volume 61.8 cm??? 18 - 58 / 22 - 52 cm??? LA Volume Index 29.8 cm???/m??? 16 - 28 cm???/m??? M-MODE Aortic Root Diameter MM 3.5 cm AV Cusp Separation MM 2.2 cm DOPPLER AV Peak Velocity 123.2 cm/s AV Peak Gradient 6.1 mmHg MV Area PHT 2.4 cm??? Mitral E Point Velocity 71.8 cm/s Mitral A Point Velocity 89.0 cm/s Mitral E to A Ratio 0.8 MV Deceleration Time 318.6 ms TR Peak Velocity 273.3 cm/s TR Peak Gradient 29.9 mmHg Right Ventricular Systolic Press 34.9 mmHg FINDINGS Left Ventricle Left ventricular ejection fraction is estimated at 55-60 %. Left ventricular cavity size normal. Mildly increased septal wall thickness. Normal left ventricular wall motion. Right Ventricle Mild right ventricular dilatation. Hypokinetic right ventricle Right Atrium Normal right atrial size. Negative agitated saline bubble study for right to left shunt. Left Atrium Mildly increased left atrial volume. No left atrial thrombus or mass present. Mitral Valve Structurally normal mitral valve. No mitral stenosis, or prolapse.mild mitral regurgitation. Aortic Valve Trileaflet aortic valve. No aortic valve stenosis or regurgitation. Tricuspid Valve Structurally normal tricuspid valve. Mild tricuspid regurgitation. Pulmonic Valve Structurally normal pulmonic valve. No pulmonic regurgitation. Pericardium No pericardial or pleural effusion. Aorta Normal size aortic root and proximal ascending aorta. CONCLUSIONS 1. Normal left ventricular size and systolic function 2. Dilated right ventricle with global hypokinesis 3. Mild tricuspid regurgitation with no evidence of pulmonary hypertension 4. No evidence of shunting by bubble study Previewed by: Dr. Jaime Avalos MD (Electronically Signed) Final Date: 06 April 2024 13:28
--- NOTE | 2024-05-03 13:14 | XR ---
Patient: Eli Frazier Ordering Physician: Unknown, Unknown ID: [id number] Phone, Pager: Phone: N/A Pager: N/A : 12/04/1969 Age/Gender: 54Y, F Primary Location: N/A Procedure: 1v cxr Study Date: 03/18 7:12:00 PM EXAMINATION TYPE: XR chest 1V DATE OF EXAM: 04/05/2024 7:27 PM CLINICAL INDICATION: Code stroke COMPARISON: None TECHNIQUE: XR chest 1V Frontal view of the chest. FINDINGS: Lungs/Pleura: There is no evidence of pleural effusion, focal consolidation, or pneumothorax. Pulmonary vascularity: Unremarkable. Heart/mediastinum: Cardiomediastinal silhouette is unremarkable. Musculoskeletal: No acute osseous pathology. Other findings: None IMPRESSION: No acute cardiopulmonary disease/process.
== END 2024-04-11 15:51 | DRG 62 ==
LOC: 3SCARD 19:30
PROVIDERS: ADMIT Internal Medicine; ATTEND Internal Medicine
DX: I63.9 Cerebral infarction, unspecified (principal); G81.94 Hemiplegia, unspecified affecting left nondominant side; R47.81 Slurred speech; K21.9 Gastro-esophageal reflux disease without esophagitis; E11.9 Type 2 diabetes mellitus without complications; K59.00 Constipation, unspecified; J30.9 Allergic rhinitis, unspecified; Z79.82 Long term (current) use of aspirin; Z79.02 Long term (current) use of antithrombotics/antiplatelets; Z79.899 Other long term (current) drug therapy; Z88.1 Allergy status to other antibiotic agents; Z88.2 Allergy status to sulfonamides; Z79.84 Long term (current) use of oral hypoglycemic drugs; F32.A Depression, unspecified; E78.5 Hyperlipidemia, unspecified; I10 Essential (primary) hypertension
CPT/HCPCS: 70450; 70496; 70498; 70551; 71045; 80061; 83036; 93005; 93270; 93306; 96361; 96374; 96375; 99291

== ENCOUNTER 2024-04-12 14:46 | Emergency (ER) | payer MEDICARE ==
--- NOTE | 2024-04-12 15:47 | ED ---
General Adult HPI - General Chief complaint: Fall Stated complaint: Fall Time Seen by Provider: 04/12/24 14:56 Source: patient Mode of arrival: EMS Limitations: no limitations - History of Present Illness Initial comments: Dictation was produced using Visual Pro 360 dictation software. please excuse any grammatical, word or spelling errors. Chief Complaint: 68-year-old female presents with fall History of Present Illness: Patient is a 60-year-old female she lives at [facility]. She [facility] self [facility]. She was sitting down trying to take off her socks when she fell forward striking the left side of her head. Denies any neck pain. Patient does not take any anticoagulation medications. She was sent here for evaluation. The ROS documented in this emergency department record has been reviewed and confirmed by me. Those systems with pertinent positive or negative responses have been documented in the HPI. All other systems are other negative and/or noncontributory. - Related Data Home Medications Medication Instructions Recorded Confirmed DULoxetine HCL [Cymbalta] 60 mg PO DAILY 09/14/18 09/23/18 Ergocalciferol (Vitamin D2) 50,000 unit PO WE 09/14/18 09/23/18 [Vitamin D2] Metoprolol Succinate (ER) [Toprol 100 mg PO DAILY 09/14/18 09/23/18 XL] amLODIPine [Norvasc] 5 mg PO BID 09/14/18 09/23/18 glipiZIDE [Glucotrol] 5 mg PO AC-BID 09/14/18 09/23/18 metFORMIN HCL [Glucophage] 1,000 mg PO QAM 09/14/18 09/23/18 metFORMIN HCL [Glucophage] 1,500 mg PO PC-SUPPER 09/14/18 09/23/18 Previous Rx's Medication Instructions Recorded Omeprazole 40 mg PO DAILY #30 capsule. 09/23/18 Ascorbic Acid [Vitamin C] 1,000 mg PO DAILY@1200 tab 04/11/24 Aspirin 81 mg PO DAILY tab 04/11/24 Atorvastatin [Lipitor] 40 mg PO DAILY tab 04/11/24 Clopidogrel [Plavix] 75 mg PO DAILY #90 tab 04/11/24 Cyanocobalamin [Vitamin B-12] 1,000 mcg PO DAILY@1200 tab 04/11/24 Losartan [Cozaar] 50 mg PO BID tab 04/11/24 Psyllium Husk 100% [Metamucil 6 gm PO DAILY packet 04/11/24 Packet] polyethylene glycoL 3350 [Miralax] 17 gm PO DAILY packet 04/11/24 Allergies Allergy/AdvReac Type Severity Reaction Status Date / Time adhesive tape Allergy Rash/Hives Verified 04/12/24 14:56 Sulfa (Sulfonamide Allergy Rash/Hives Verified 04/12/24 14:56 Antibiotics) Z-PACK Allergy Rash/Hives Uncoded 04/12/24 14:56 Review of Systems ROS Statement: Those systems with pertinent positive or pertinent negative responses have been documented in the HPI. ROS Other: All systems not noted in ROS Statement are negative. Past Medical History Past Medical History: CVA/TIA, Diabetes Mellitus, GERD/Reflux, Hypertension, Osteoarthritis (OA) Additional Past Medical History / Comment(s): migraines, diff swallowing, CVA (left sided weakness.) History of Any Multi-Drug Resistant Organisms: None Reported Past Surgical History: Cholecystectomy, Hernia Repair, Hysterectomy Past Anesthesia/Blood Transfusion Reactions: No Reported Reaction Past Psychological History: No Psychological Hx Reported Smoking Status: Never smoker Past Alcohol Use History: Occasional Past Drug Use History: None Reported - Past Family History Son(s) Family Medical History: Cancer General Exam - General Exam Comments Initial Comments: PHYSICAL EXAM: General Impression: Alert and oriented x3, not in acute distress HEENT: Normocephalic atraumatic, extra-ocular movements intact, pupils equal and reactive to light bilaterally, mucous membranes moist. Cardiovascular: Heart regular rate and rhythm Chest: Able to complete full sentences, no retractions, no tachypnea Abdomen: abdomen soft, non-tender, non-distended, no organomegaly Musculoskeletal: Pulses present and equal in all extremities, no peripheral edema Motor: no focal deficits noted Neurological: CN II-XII grossly intact Skin: Intact with no visualized rashes Psych: Normal affect and mood Limitations: no limitations Course Vital Signs 04/12/24 14:52 Temperature 98.4 F Pulse Rate 70 Respiratory 18 Rate Blood Pressure 146/73 O2 Sat by Pulse 97 Oximetry Medical Decision Making - Medical Decision Making Was pt. sent in by a medical professional or institution (, PA, PRODUCTION UNDERWRITER, urgent care, hospital, or prison...) When possible be specific @ -No Did you speak to anyone other than the patient for history (EMS, parent, family, police, friend...)? What history was obtained from this source @ -No Did you review nursing and triage notes (agree or disagree)? Why? @ -I reviewed and agree with nursing and triage notes Were old charts reviewed (outside hosp., previous admission, EMS record, old EKG, old radiological studies, urgent care reports/EKG's, prison records)? Report findings @ -No old charts were reviewed Differential Diagnosis (chest pain, altered mental status, abdominal pain women, abdominal pain men, vaginal bleeding, musculoskeletal, weakness, fever, dyspnea, syncope, headache, dizziness, GI bleed, back pain, seizure, CVA, palpatations, mental health)? @ -Skull fracture, intracranial bleed, head contusion EKG interpreted by me (3pts min.). @ -None done X-rays interpreted by me (1pt min.). @ -None done CT interpreted by me (1pt min.). @ -CT scan the brain shows no acute processes U/S interpreted by me (1pt. min.). @ -None done What testing was considered but not performed or refused? (CT, X-rays, U/S, labs)? Why? @ -None What meds were considered but not given or refused? Why? @ -None Was smoking cessation discussed for >3mins.? @ -No Were there social determinants of health that impacted care today? How? (Homelessness, low income, unemployed, alcoholism, drug addiction, transportation, low edu. Level, literacy, decrease access to med. care, custodial, rehab)? @ -No Was there de-escalation of care discussed even if they declined (Discuss DNR or withdrawal of care, Hospice)? DNR status @ -No What co-morbidities impacted this encounter? (DM, HTN, Smoking, COPD, CAD, Cancer, CVA, ARF, Chemo, Hep., AIDS, mental health diagnosis, sleep apnea, morbid obesity)? @ -None Was patient admitted / discharged? Hospital course, mention meds given and route, prescriptions, significant lab abnormalities, going to OR and other pertinent info. @ -68-year-old female presents to the emergency department after she was left unattended. She was sitting down and fell from a sitting position struck her head. Patient has history of stroke and fell due to residual weakness. Patient well-appearing. CT brain is negative. Patient reevaluated at 4:49 PM stable medical addition. Patient discharged Did you discuss the management of the patient with other professionals (professionals i.e. , PA, PRODUCTION UNDERWRITER, lab, RT, psych nurse, social media assistant, soap boiler, teacher, second officer, spring encaser)? Give summary @ -No Was critical care preformed (if so, how long)? @ -No Undiagnosed new problem with uncertain prognosis? @ -No Drug Therapy requiring intensive monitoring for toxicity (Heparin, Nitro, Insulin, Cardizem)? @ -No Were any procedures done? @ -No Diagnosis/symptom? Acute, or Chronic, or Acute on Chronic? Uncomplicated (without systemic symptoms) or Complicated (systemic symptoms)? @ -Head contusion Side effects of treatment? @ -No Exacerbation, Progression, or Severe Exacerbation? @ -No Poses a threat to life or bodily function? How? (Chest pain, USA, CA, pneumonia, PE, COPD, DKA, ARF, appy, cholecystitis, CVA, Diverticulitis, Homicidal, Suicidal, threat to staff... and all critical care pts) @ -No Disposition Clinical Impression: Fall Disposition: HOME SELF-CARE Condition: Good Instructions (If sedation given, give patient instructions): Fall Prevention for Older Adults (ED) Is patient prescribed a controlled substance at d/c from ED?: No Referrals: Nonstaff,Physician [Primary Care Provider] - 1-2 days Time of Disposition: 16:49
--- NOTE | 2024-04-12 16:11 | CT ---
EXAMINATION TYPE: CT brain wo con DATE OF EXAM: 04/12/2024 COMPARISON: 07/02/2021 INDICATION: Fell today and hit left side of head, no LOC. Recent stroke. DLP: 1125.4 mGycm, Automated exposure control for dose reduction was used. CONTRAST: None CT of the brain is performed utilizing 3 mm thick sections through the posterior fossa and 3 mm thick sections through the remaining calvarium. Study is performed within 24 hours of arrival to the hosp ital. No abnormal hyperdensity is present to suggest an acute intracranial hemorrhage. No mass lesion is evident. No acute infarcts are evident. Periventricular white matter hypodensity is present, likely on the bas is of chronic white matter ischemic changes. Old lacunar infarct within the right basal ganglion. Ventricles and sulci are appropriate for the patient age. Paranasal sinuses and mastoid air cells within the [id number] are clear. IMPRESSION: 1. No acute intracranial process. Follow up MRI can be performed as clinically indicated. 2. Chronic appearing periventricular white matter ischemic changes. 3. Old right basal ganglion lacunar infarct
[2024-04-12 18:30] VITALS: BP 100/68; PULSE 80; RESP 16; TEMP 98.1
== END 2024-04-12 18:30 | disposition home or self-care (01) ==
LOC: EC 14:46
DX: W19.XXXA Unspecified fall, initial encounter
CPT/HCPCS: 70450; 99283

== ENCOUNTER → 2024-05-04 | Outpatient (CLI) | payer MEDICARE ==
--- NOTE | 2024-05-04 15:08 | CT ---
EXAMINATION TYPE: CT brain wo con DATE OF EXAM: 05/04/2024 COMPARISON: 04/12/2024, 07/02/2021 HISTORY: 69-year-old female M54.6 PAIN IN TS W19.XXXA FALL Y92.009 UNSP NON-IN, Trauma to head and fa ce from fall TECHNIQUE: Examination was done in axial plane without intravenous contrast. Coronal and sagittal r econstructions performed. CT DLP: 1227 mGycm Automated exposure control for dose reduction was used. FINDINGS: There is no evidence of acute intracranial hemorrhage, acute ischemic changes, mass, mass-effect, or extra-axial fluid collection. There is no effacement of cerebral sulci or basal subarachnoid cister ns. There is no hydrocephalus. There is no midline shift. Liao-white matter distinction is preserv ed. Mild atherosclerotic calcifications within the carotid siphons. Mild patchy white matter hypodensitie s in posterior hemispheres including old lacunar infarct right basal ganglia. Some dural calcification along the anterior falx remains unchanged back to 2020, axial image 13. Left frontal scalp contusion. No underlying calvarial fracture. Leftward nasal septal deviation. Paranasal sinuses and mastoid air cells are pneumatized. IMPRESSION: 1. Left frontal scalp contusion. No acute intracranial abnormality seen. 2. Mild burden of chronic small vessel ischemic disease. Old lacunar infarct right basal ganglia rede monstrated. [facility], , 05/04/2024 3:06 PM
--- NOTE | 2024-05-07 08:54 | XR ---
EXAMINATION TYPE: XR thoracic spine 2V DATE OF EXAM: 05/04/2024 COMPARISON: None HISTORY: Back pain, fall TECHNIQUE: 3 view thoracic spine FINDINGS: There are 12 thoracic type vertebral bodies. Visualized pedicles are intact. Electronic dev ice obscures a mid thoracic pedicle. There is slight increased kyphosis present. No acute fractures a re evident. Vertebral body heights are preserved. Diffuse minimal disc space narrowing is present. Sp ondylosis is present. IMPRESSION: 1. Mild degenerative changes with slight increased kyphosis. 2. No acute osseous abnormality radiographically apparent [facility], , 05/07/2024 8:52 AM
== END | disposition home or self-care (01) ==
LOC: RADCTMAIN 14:25
PROVIDERS: ATTEND Internal Medicine
DX: S00.03XA Contusion of scalp, initial encounter (principal); M47.814 Spondylosis without myelopathy or radiculopathy, thoracic region; I67.82 Cerebral ischemia; Z86.73 Personal history of transient ischemic attack (TIA), and cerebral infarction without residual deficits; J34.2 Deviated nasal septum; M40.209 Unspecified kyphosis, site unspecified; Y92.009 Unspecified place in unspecified non-institutional (private) residence as the place of occurrence of the external cause; W19.XXXA Unspecified fall, initial encounter
CPT/HCPCS: 70450; 72070

== ENCOUNTER → 2024-07-12 | Outpatient (CLI) | payer MEDICARE ==
--- NOTE | 2024-07-12 09:34 | US ---
EXAMINATION TYPE: US abdomen complete DATE OF EXAM: 07/12/2024 COMPARISON: Renal US 2020 CLINICAL INDICATION: Female, 69 years old with history of R14.0 ABDOMINAL DISTENSION (GASEOUS); Gaseo us distension. Hx cholecystectomy TECHNIQUE: Grayscale and color Doppler imaging of the abdomen was performed. FINDINGS: EXAM MEASUREMENTS: Liver Length: 15.6 cm Gallbladder Wall: Surgically absent CBD: Obscured , color Doppler imaging was utilized to isolate the common bile duct for measurement. Spleen: 10.7 cm Right Kidney: 11.1 x 5.9 x 5.3 cm Left Kidney: 12.0 x 5.1 x 4.9 cm LION HUNTER NOTES: Exam is limited due to gas. Pancreas: Very limited due to gas. Tail was obscured. Liver: *Increased echogenicity, very coarse in echotexture. Limited due to gas. Gallbladder: Surgically absent. Area of fossa obscured by gas. CBD: Obscured Spleen: Appears wnl Right Kidney: Anechoic fluid seen inferior to kidney = 1.6 x 1.7 x 1.0 cm. Left Kidney: *Complex area seen superior/medial = 10.6 x 8.1 x 7.4 cm. *Appearance of complex fluid seen adjacent to upper kidney = 6.7 x 2.3 x 1.6 cm. *Anechoic fluid seen inferior to kidney = 2.4 x 2.2 x 1.2 cm. Upper IVC: Appears wnl Abd Aorta: Iliac arteries were obscured. Limited due to gas. Proximal segment appears ectatic= 2.8 cm. Poor visualization the pancreas due to overlying bowel gas. Liver demonstrates diffuse increased echo genicity with coarsened echotexture. No focal lesion identified. Gallbladder is surgically absent. Th e visualized portions of the upper IVC are within normal limits. Ectatic appearance of the proximal a bdominal aorta measuring up to 2.8 cm. Common bile duct is obscured by overlying bowel gas. Spleen ap pears within normal limits. No hydronephrosis. No renal calculi. Small amount of anechoic fluid inferior to the right kidney. Exo phytic anechoic cyst emanating from the superior/medial aspect of the left kidney measuring up to 10. 6 cm. Demonstrates minimal thin septation. Has increased in size from prior exam. Complex fluid adjac ent to the upper pole of the left kidney. Anechoic fluid inferior to the left kidney. IMPRESSION: 1. No hydronephrosis. 2. Increased size of minimally complex left renal cyst. Further evaluation with CT or MR abdomen isabella l mass protocol is recommended. 3. Complex fluid adjacent to the left kidney. Recommendation #2. 4. Anechoic fluid adjacent to both kidneys. 5. Hepatic steatosis. [facility], , 07/12/2024 9:32 AM
== END | disposition home or self-care (01) ==
LOC: RADUSWWP 08:26
PROVIDERS: ATTEND Internal Medicine
DX: K76.0 Fatty (change of) liver, not elsewhere classified (principal); N28.1 Cyst of kidney, acquired; R14.0 Abdominal distension (gaseous); Z90.49 Acquired absence of other specified parts of digestive tract
CPT/HCPCS: 76700

== ENCOUNTER → 2024-07-26 | Outpatient (CLI) | payer MEDICARE ==
--- NOTE | 2024-07-31 04:40 | MM ---
Reason for Exam: Screening (asymptomatic). Last mammogram was performed 1 year(s) and 7 month(s) ago. Patient History: Menarche at age 9. First Full-Term at age 25. Hysterectomy at age 31. Postmenopausal. Estrogen for 6 years, 7 months, from age 39 until age 46. 09/24/2015, Benign Core Biopsy on the left side. Risk Values: Ritika 5 year model risk: 2.5%. NCI Lifetime model risk: 7.6%. Prior Study Comparison: 06/11/2020 Right Diagnostic Mammogram, [facility]. 04/10/2021 Right Diagnostic Mammogram, [facility]. 12/19/2022 Bilateral MG 3D screening mammo w/cad, [facility]. Tissue Density: There are scattered areas of fibroglandular density. Findings: Analyzed By CAD. The pattern is symmetrical. No significant interval change. Core marker is within the left breast. Stable chronic nodularity is within the left breast. No suspicious groups of microcalcifications, spiculated or lobular masses, architectural distortion or other secondary signs of malignancy are mammographically apparent. Overall Assessment: Benign, BI-RAD 2 Management: Screening Mammogram of both breasts in 1 year. A negative mammogram report should not preclude additional follow up of suspicious palpable abnormalities. Patient should continue monthly self breast exam. A clinical breast exam by your physician is recommended on an annual basis and results should be correlated with mammographic findings. Note on Ritika scores and lifetime risk: 1. A Ritika score greater than 3% is considered moderate risk. If this is the case, consider specialist referral to assess eligibility for a risk reducing agent. 2. If overall lifetime risk for the development of breast cancer is 20% or higher, the patient may qualify for future screening with alternating mammogram and breast MRI. [facility], , 07/31/2024 4:38 AM. Electronically signed and approved by: Arjun Nails D.O. Radiologis
== END | disposition home or self-care (01) ==
LOC: RADMAMWWP 11:29
PROVIDERS: ATTEND Internal Medicine
DX: Z12.31 Encounter for screening mammogram for malignant neoplasm of breast (principal); R14.0 Abdominal distension (gaseous); Z78.0 Asymptomatic menopausal state; R92.323 Mammographic fibroglandular density, bilateral breasts
CPT/HCPCS: 77063; 77067

== ENCOUNTER → 2024-08-12 | Outpatient (CLI) | payer MEDICARE ==
--- NOTE | 2024-08-13 23:32 | MR ---
EXAMINATION TYPE: MR kidney wo/w con DATE OF EXAM: 08/12/2024 2:55 PM INDICATION: Patient age:Female; 69 years old; Reason for study: N28.1 RENAL CYST; [facility]. COMPARISON: Abdominal ultrasound 07/12/2024, renal ultrasound 07/18/2021 TECHNIQUE: Multiplanar multi-sequence imaging was performed of the abdomen without and with IV contr ast. The patient was given 9 ccs of Gadobutrol intravenously and dynamic imaging was performed. Post IV contrast subtraction images were also submitted for review. FINDINGS: LOWER CHEST: Bibasilar subsegmental atelectasis. Mild cardiomegaly.. ABDOMEN Liver: Unremarkable. Gallbladder and Bile ducts: Gallbladder is surgically absent. No biliary duct dilatation. Pancreas: Unremarkable. Spleen: Unremarkable. Adrenal glands: Unremarkable. Kidneys: No hydronephrosis. Exophytic left mid kidney 7.2 x 5.4 cm T2 hyperintense cystic lesion wit h septations. There is somewhat nodular septal appearance measuring up to 6 mm (series, image 19). Th ere is some minimal T1 intrinsic hyperintensity within the wall. Only thin smooth peripheral wall enh ancement identified. No definitive septal enhancement. No suspicious enhancing right renal lesions. Stomach and Bowel: Small hiatal hernia. No evidence for bowel obstruction. Peritoneum: No evidence of pneumoperitoneum, free fluid, or adenopathy. Vasculature: Unremarkable. No aortic aneurysm. Abdominal wall: Unremarkable. Musculoskeletal: The osseous structures appear intact. IMPRESSION: Complex left renal 7.2 cm cystic lesion with only smooth peripheral wall enhancement. Minimal wall T1 intrinsic hyperintensity. There is some septal nodularity without enhancement identified. 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 Urology consult is recommended with ayannao n for surgical excision. [facility], , 08/13/2024 11:29 PM
== END | disposition home or self-care (01) ==
LOC: RADMRIMAIN 13:57
PROVIDERS: ATTEND Internal Medicine
DX: N28.1 Cyst of kidney, acquired (principal)
CPT/HCPCS: 74183; A9585